=== PATIENT | male | born 1985 | race Caucasian/White ===

== ENCOUNTER 2022-04-19 16:51 | Emergency (ER) | payer OTHER ==
[2022-04-19 16:56] VITALS: BP 149/102; PULSE 80; RESP 18; TEMP 98; BMI 37.9
[2022-04-19] MEDS ORDERED: METHOCARBAMOL 500 MG TABLET PO ONE (17:24)
[2022-04-19] MEDS ORDERED: KETOROLAC TROMETHAMINE 30 MG/1 ML VIAL IM ONE (17:24)
[2022-04-19] MEDS ORDERED: KETOROLAC TROMETHAMINE 30 MG/1 ML VIAL ONE (17:25)
[2022-04-19] MEDS ORDERED: METHOCARBAMOL 500 MG TABLET ONE (17:25)
== END 2022-04-19 17:34 | disposition home or self-care (01) ==
LOC: JERFT 16:51
PROC: 3E0233Z Introduction of Anti-inflammatory into Muscle, Percutaneous Approach (ICD-10-PCS; principal; 2022-04-19)
DX: M54.2 Cervicalgia (principal); M54.50 Low back pain, unspecified; V87.7XXA Person injured in collision between other specified motor vehicles (traffic), initial encounter; Y92.9 Unspecified place or not applicable
CPT/HCPCS: 99283-25